=== PATIENT | female | born 1940 | race Caucasian/White ===

== ENCOUNTER 2018-01-01 13:53 | Inpatient (IN) ==
[2018-01-01] MEDS ORDERED: 0.9 % Sodium Chloride 500 ML IVC ONE ×2 (13:58→15:18)
--- NOTE | 2018-01-01 14:11 | Emergency Department Note ---
Disposition Clinical Impression: C. difficile colitis, Hyponatremia, Elevated troponin, Urinary retention, NSTEMI (non-ST elevated myocardial infarction) Disposition: Admitted As Inpatient Condition: Good General Adult HPI - General Chief complaint: ED Shortness of Breath/Dyspnea Stated complaint: SOB Time Seen by Provider: 01/01/18 13:56 Nursing Notes Reviewed: Yes Vital Signs Reviewed: Yes - History of Present Illness Pain Scale: 8 - Related Data Home Medications Medication Instructions Recorded Confirmed Albuterol Sulfate [Proair Hfa] 2 puff IH Q4H PRN 08/28/15 01/01/18 Fluticasone/Salmeterol [Advair 1 puff IH BID 08/28/15 01/01/18 250-50 Diskus] Loratadine [Claritin] 10 mg PO QPM 08/28/15 01/01/18 Ascorbate Calcium [Vitamin C] 500 mg PO DAILY 01/01/18 01/01/18 Aspirin Enteric Coated [Aspirin EC] 81 mg PO DAILY 01/01/18 01/01/18 Cholecalciferol (D-3) [Vitamin D] 1,000 unit PO DAILY 01/01/18 01/01/18 Vancomycin HCl [Vancomycin HCl] 250 mg PO Q6H 01/01/18 01/01/18 Previous Rx's Medication Instructions Recorded Esomeprazole Magnesium [Nexium] 40 mg PO BID #60 04/10/16 Sucralfate [Carafate] 1 gm PO QIDAC #120 tablet 04/10/16 Allergies Allergy/AdvReac Type Severity Reaction Status Date / Time morphine AdvReac Vomiting Verified 08/28/15 19:55 Oxycodone [From Percocet] AdvReac Vomiting Verified 01/01/18 14:46 propoxyphene AdvReac Vomiting Verified 01/01/18 14:46 [From Darvocet-N] tramadol AdvReac Headache Verified 01/01/18 14:46 tape Allergy Hives Uncoded 01/01/18 14:46 Past Medical History - Past Medical History Medical history: Reports: COPD, hypertension Surgical history: Reports: appendectomy, cholecystectomy, hysterectomy Psychiatric history: Reports: no psych history SECRETARIAL STENOGRAPHER history: Reports: no SECRETARIAL STENOGRAPHER history - Social History Smoking Status: Never smoker Smokeless Tobacco Status: No Alcohol use: Reports: none Drug use: Reports: none Course Vital Signs Temperature 98.2 F 01/01/18 14:04 Pulse Rate 109 01/01/18 14:04 Respiratory Rate 24 01/01/18 14:04 Blood Pressure 156/78 01/01/18 14:04 O2 Sat by Pulse Oximetry 96 01/01/18 14:04 Temperature 97.8 F 01/01/18 19:21 Pulse Rate 106 01/01/18 19:21 Respiratory Rate 18 01/01/18 19:21 Blood Pressure 122/92 01/01/18 19:21 O2 Sat by Pulse Oximetry 96 01/01/18 19:21 Oxygen Delivery Oxygen Delivery Nasal Cannula Medical Decision Making - Lab Data Result diagrams: 01/01/18 14:06 01/01/18 14:06 Lab Results 01/01/18 01/01/18 01/01/18 Range/Units 14:06 14:06 14:06 WBC 16.3 H (4.3-11.1) K/mcL RBC 4.43 (3.82-4.97) M/mcL Hgb 13.1 (11.5-15.4) g/dL Hct 38.5 (35.3-44.9) % MCV 86.9 (83.0-100.0) fL MCH 29.6 (28.0-33.3) pg MCHC 34.0 (31.6-35.5) g/dL RDW 14.0 (11.5-14.5) % Plt Count 367 (140-400) K/mcL MPV 9.1 L (9.4-12.4) fL Immature Gran % 0.4 (0-4) % Seg Neutrophils % 87.7 % Lymphocytes % 7.4 % Monocytes % 4.2 % Eosinophils % 0.1 % Basophils % 0.2 % Neutrophils # 14.3 H (1.6-8.9) K/mcL Lymphocytes # 1.2 (0.6-4.6) K/mcL Monocytes # 0.7 (0.0-1.3) K/mcL Eosinophils # 0.0 (0.0-0.6) K/mcL Basophils # 0.0 (0.0-0.2) K/mcL Sodium 118 L* (136-145) mEq/L Potassium 3.7 (3.5-5.1) mEq/L Chloride 91 L (98-107) mEq/L Carbon Dioxide 17 L (23-29) mEq/L BUN 9 (8-23) mg/dL Creatinine 0.53 L (0.60-1.20) mg/dL Est GFR ( Amer) > 60 (> 60) Est GFR (Non-Af Amer) > 60 (> 60) BUN/Creatinine Ratio 17 (6-26) Glucose 163 H (70-105) mg/dL Calculated Osmolality 248 L (280-300) Lactic Acid 1.6 (0.5-2.2) mmol/L Calcium 9.0 (8.6-10.3) mg/dL Troponin I 0.43 H* (< 0.04) ng/mL Urine Color (Yellow) Urine Clarity (Clear) Urine pH (5.0-8.0) pH Units Ur Specific [place] (1.010-1.025) Urine Protein (Neg-Trace) mg/dL Urine Glucose (UA) (Normal) mg/dL Urine Ketones (Negative) mg/dL Urine Blood (Negative) Urine Nitrite (Negative) Urine Bilirubin (Negative) Urine Urobilinogen (Normal) mg/dL Ur Leukocyte Esterase (Negative) Ur Culture Indicated? (NO) 01/01/18 Range/Units 14:20 WBC (4.3-11.1) K/mcL RBC (3.82-4.97) M/mcL Hgb (11.5-15.4) g/dL Hct (35.3-44.9) % MCV (83.0-100.0) fL MCH (28.0-33.3) pg MCHC (31.6-35.5) g/dL RDW (11.5-14.5) % Plt Count (140-400) K/mcL MPV (9.4-12.4) fL Immature Gran % (0-4) % Seg Neutrophils % % Lymphocytes % % Monocytes % % Eosinophils % % Basophils % % Neutrophils # (1.6-8.9) K/mcL Lymphocytes # (0.6-4.6) K/mcL Monocytes # (0.0-1.3) K/mcL Eosinophils # (0.0-0.6) K/mcL Basophils # (0.0-0.2) K/mcL Sodium (136-145) mEq/L Potassium (3.5-5.1) mEq/L Chloride (98-107) mEq/L Carbon Dioxide (23-29) mEq/L BUN (8-23) mg/dL Creatinine (0.60-1.20) mg/dL Est GFR ( Amer) (> 60) Est GFR (Non-Af Amer) (> 60) BUN/Creatinine Ratio (6-26) Glucose (70-105) mg/dL Calculated Osmolality (280-300) Lactic Acid (0.5-2.2) mmol/L Calcium (8.6-10.3) mg/dL Troponin I (< 0.04) ng/mL Urine Color Yellow (Yellow) Urine Clarity Clear (Clear) Urine pH 7.0 (5.0-8.0) pH Units Ur Specific [place] 1.008 L (1.010-1.025) Urine Protein Negative (Neg-Trace) mg/dL Urine Glucose (UA) Normal (Normal) mg/dL Urine Ketones Negative (Negative) mg/dL Urine Blood Negative (Negative) Urine Nitrite Negative (Negative) Urine Bilirubin Negative (Negative) Urine Urobilinogen Normal (Normal) mg/dL Ur Leukocyte Esterase Negative (Negative) Ur Culture Indicated? NO (NO) Attestation Statement - Attestation Attestation: This documentation is done with the assistance of Dragon dictation. Despite efforts made to ensure accuracy, there may be inaccuracies in slip cover cutter or spelling and typographical errors. this is I examined this patient and my medical decision-making was reviewed with the Resident Physician. I agree with the documented findings, disposition and treatment plan as described except to the extent set forth below. He cannot get long patient seen and evaluated on arrival with EMS, and Dr. Hagen, I agree with her evaluation and management plan, supervise care the patient's stay. Patient comes from home she had some shortness of breath and was anxious. Sharlamustapha was able to get her calm down in the and coaxed her to breathe slower no breathing treatments. She says she is not able to stay at home she is C. difficile and she is not doing well she appears somewhat dehydrated. With some abdominal cramping. we will Do a workup on her and she will most likely need admission. She is in agreement with this plan.
--- NOTE | 2018-01-01 14:15 | Emergency Department Note ---
Disposition Clinical Impression: C. difficile colitis, Hyponatremia, Elevated troponin, Urinary retention, NSTEMI (non-ST elevated myocardial infarction) Disposition: Admitted As Inpatient Condition: Good Referrals: Emanuel Kulkarni MD [Primary Care Provider] - Forms: ED Satisfaction Letter Time of Disposition: 16:46 General Adult HPI - General Chief complaint: ED Shortness of Breath/Dyspnea Stated complaint: SOB Time Seen by Provider: 01/01/18 13:56 Nursing Notes Reviewed: Yes Vital Signs Reviewed: Yes - History of Present Illness HPI Narrative: Greater than 2 week history of C. difficile. Was on oral Flagyl with no relief. Recently started last week on oral vancomycin. Got short of breath this morning. Does have a history of COPD. Patient reports a decreased by mouth intake. Also complaining that she has not been able to urinate since this morning. Also complaining of generalized abdominal pain. Pain Scale: 8 - Related Data Home Medications Medication Instructions Recorded Confirmed Albuterol Sulfate [Proair Hfa] 2 puff IH Q4H PRN 08/28/15 01/01/18 Fluticasone/Salmeterol [Advair 1 puff IH BID 08/28/15 01/01/18 250-50 Diskus] Loratadine [Claritin] 10 mg PO QPM 08/28/15 01/01/18 Ascorbate Calcium [Vitamin C] 500 mg PO DAILY 01/01/18 01/01/18 Aspirin Enteric Coated [Aspirin EC] 81 mg PO DAILY 01/01/18 01/01/18 Cholecalciferol (D-3) [Vitamin D] 1,000 unit PO DAILY 01/01/18 01/01/18 Vancomycin HCl [Vancomycin HCl] 250 mg PO Q6H 01/01/18 01/01/18 Previous Rx's Medication Instructions Recorded Esomeprazole Magnesium [Nexium] 40 mg PO BID #60 04/10/16 Sucralfate [Carafate] 1 gm PO QIDAC #120 tablet 04/10/16 Allergies Allergy/AdvReac Type Severity Reaction Status Date / Time morphine AdvReac Vomiting Verified 08/28/15 19:55 Oxycodone [From Percocet] AdvReac Vomiting Verified 01/01/18 14:46 propoxyphene AdvReac Vomiting Verified 01/01/18 14:46 [From Darvocet-N] tramadol AdvReac Headache Verified 01/01/18 14:46 tape Allergy Hives Uncoded 01/01/18 14:46 All systems ED: reviewed and negative except as stated. Constitutional: Denies: fever, chills ENT ED: Denies: congestion Cardiovascular: Denies: chest pain, palpitations, syncope Respiratory: Reports: dyspnea. Denies: cough Gastrointestinal: Reports: abdominal pain, nausea, diarrhea, melena. Denies: vomiting, hematemesis, hematochezia Genitourinary: Reports: frequency (decreased). Denies: urgency, dysuria, hematuria Past Medical History - Past Medical History Attestation: Yes The following information was validated with the patient. Source: patient Medical history: Reports: COPD, hypertension Surgical history: Reports: appendectomy, cholecystectomy, hysterectomy Psychiatric history: Reports: no psych history CHIEF OPERATIONS OFFICER history: Reports: no CHIEF OPERATIONS OFFICER history - Social History Smoking Status: Never smoker Smokeless Tobacco Status: No Alcohol use: Reports: none Drug use: Reports: none Physical Exam - General Limitations: no limitations General appearance: alert, in distress (Respiratory. Patient's tachypneic) - Head Head exam: atraumatic, normocephalic, normal inspection - Eye Eye exam: Present: normal appearance, PERRL, EOMI - ENT ENT exam: normal exam, normal oropharynx, mucous membranes dry - Neck Neck exam: Present: normal inspection, full ROM, trachea midline - Chest Chest inspection: Present: normal inspection, symmetric chest wall rise - Respiratory Respiratory exam: Present: normal lung sounds bilaterally, respiratory distress. Absent: accessory muscle use - Cardiovascular Cardiovascular exam: Present: regular rate, normal rhythm, normal heart sounds - Abdominal Exam Abdominal exam: Present: soft, tenderness (Diffusely), distention, guarding. Absent: rigidity, organomegaly - Extremities Exam Extremities exam: Present: normal inspection, full ROM, normal capillary refill. Absent: tenderness, pedal edema - Back Exam Back exam: Present: normal inspection, full ROM. Absent: tenderness - Neurological Exam Neurological exam: Present: alert, oriented X3 - Psychiatric Psychiatric exam: Present: anxious - Skin Skin exam: Present: warm, dry, intact, normal color Course Course Narrative: Female patient presenting to the emergency department with a history of C. difficile. She was placed on Flagyl however did not have resolution so last week she was placed on vancomycin orally. Patient states that she is not able to eat at home. She states that she is deteriorating. She is presenting short of breath. She is tachypneic. Does have a history of COPD. Does not wear oxygen at home. EMS was called and they say that she was very tachypneic when they got there except for they started to calm her down and this did help resolve patient's symptoms. Patient has diffuse abdominal pain on palpation. She states she has not been able to urinate all day today. Last time she urinated was this morning. She states that she has been able to drink fluids. She is using accessory muscles to breathe at this time. Chest x-ray shows emphysematous changes. She is not febrile. CT does show a distended urinary bladder with urine back up into the renal pelvises. We will place a Person at this time. Patient is hyponatremic. She also has an elevated troponin. Denies any chest pain. No ST elevation on her EKG. We will give her aspirin. We will admit to the hospital for deconditioning and NSTEMI and hyponatremia. - Consultations Consultation #1: Dr Damico accepted Pt in stable condition. Time: 17:45 Vital Signs Temperature 98.2 F 01/01/18 14:04 Pulse Rate 109 01/01/18 14:04 Respiratory Rate 24 01/01/18 14:04 Blood Pressure 156/78 01/01/18 14:04 O2 Sat by Pulse Oximetry 96 01/01/18 14:04 Temperature 98.2 F 01/01/18 17:21 Pulse Rate 111 01/01/18 17:21 Respiratory Rate 20 01/01/18 17:21 Blood Pressure 138/102 01/01/18 17:21 O2 Sat by Pulse Oximetry 95 01/01/18 17:21 Oxygen Delivery Oxygen Delivery Nasal Cannula Medical Decision Making - Medical Records Medical records reviewed: Yes I reviewed the patient's medical records. - Lab Data Lab results reviewed: Yes I reviewed the patient's lab results. Result diagrams: 01/01/18 14:06 01/01/18 14:06 Lab Results 01/01/18 01/01/18 01/01/18 Range/Units 14:06 14:06 14:06 WBC 16.3 H (4.3-11.1) K/mcL RBC 4.43 (3.82-4.97) M/mcL Hgb 13.1 (11.5-15.4) g/dL Hct 38.5 (35.3-44.9) % MCV 86.9 (83.0-100.0) fL MCH 29.6 (28.0-33.3) pg MCHC 34.0 (31.6-35.5) g/dL RDW 14.0 (11.5-14.5) % Plt Count 367 (140-400) K/mcL MPV 9.1 L (9.4-12.4) fL Immature Gran % 0.4 (0-4) % Seg Neutrophils % 87.7 % Lymphocytes % 7.4 % Monocytes % 4.2 % Eosinophils % 0.1 % Basophils % 0.2 % Neutrophils # 14.3 H (1.6-8.9) K/mcL Lymphocytes # 1.2 (0.6-4.6) K/mcL Monocytes # 0.7 (0.0-1.3) K/mcL Eosinophils # 0.0 (0.0-0.6) K/mcL Basophils # 0.0 (0.0-0.2) K/mcL Sodium 118 L* (136-145) mEq/L Potassium 3.7 (3.5-5.1) mEq/L Chloride 91 L (98-107) mEq/L Carbon Dioxide 17 L (23-29) mEq/L BUN 9 (8-23) mg/dL Creatinine 0.53 L (0.60-1.20) mg/dL Est GFR ( Amer) > 60 (> 60) Est GFR (Non-Af Amer) > 60 (> 60) BUN/Creatinine Ratio 17 (6-26) Glucose 163 H (70-105) mg/dL Calculated Osmolality 248 L (280-300) Lactic Acid 1.6 (0.5-2.2) mmol/L Calcium 9.0 (8.6-10.3) mg/dL Troponin I 0.43 H* (< 0.04) ng/mL Urine Color (Yellow) Urine Clarity (Clear) Urine pH (5.0-8.0) pH Units Ur Specific [place] (1.010-1.025) Urine Protein (Neg-Trace) mg/dL Urine Glucose (UA) (Normal) mg/dL Urine Ketones (Negative) mg/dL Urine Blood (Negative) Urine Nitrite (Negative) Urine Bilirubin (Negative) Urine Urobilinogen (Normal) mg/dL Ur Leukocyte Esterase (Negative) Ur Culture Indicated? (NO) 01/01/18 Range/Units 14:20 WBC (4.3-11.1) K/mcL RBC (3.82-4.97) M/mcL Hgb (11.5-15.4) g/dL Hct (35.3-44.9) % MCV (83.0-100.0) fL MCH (28.0-33.3) pg MCHC (31.6-35.5) g/dL RDW (11.5-14.5) % Plt Count (140-400) K/mcL MPV (9.4-12.4) fL Immature Gran % (0-4) % Seg Neutrophils % % Lymphocytes % % Monocytes % % Eosinophils % % Basophils % % Neutrophils # (1.6-8.9) K/mcL Lymphocytes # (0.6-4.6) K/mcL Monocytes # (0.0-1.3) K/mcL Eosinophils # (0.0-0.6) K/mcL Basophils # (0.0-0.2) K/mcL Sodium (136-145) mEq/L Potassium (3.5-5.1) mEq/L Chloride (98-107) mEq/L Carbon Dioxide (23-29) mEq/L BUN (8-23) mg/dL Creatinine (0.60-1.20) mg/dL Est GFR ( Amer) (> 60) Est GFR (Non-Af Amer) (> 60) BUN/Creatinine Ratio (6-26) Glucose (70-105) mg/dL Calculated Osmolality (280-300) Lactic Acid (0.5-2.2) mmol/L Calcium (8.6-10.3) mg/dL Troponin I (< 0.04) ng/mL Urine Color Yellow (Yellow) Urine Clarity Clear (Clear) Urine pH 7.0 (5.0-8.0) pH Units Ur Specific [place] 1.008 L (1.010-1.025) Urine Protein Negative (Neg-Trace) mg/dL Urine Glucose (UA) Normal (Normal) mg/dL Urine Ketones Negative (Negative) mg/dL Urine Blood Negative (Negative) Urine Nitrite Negative (Negative) Urine Bilirubin Negative (Negative) Urine Urobilinogen Normal (Normal) mg/dL Ur Leukocyte Esterase Negative (Negative) Ur Culture Indicated? NO (NO) - Radiology Data Radiology results reviewed: Yes I reviewed the patient's radiology results. Chest X-Ray 01/01/18 13:57 IMPRESSION: Mild bibasilar airspace disease, atelectasis or pneumonia. Follow-up to resolution is recommended. D/ / Gloria York Cha, MD / Gloria York Cha, MD Interpreting Provider: Gloria York Cha, MD - EKG Data EKG #1 EKG attestation: Yes I reviewed and interpreted this EKG. EKG results narrative: Sinus tach at a rate of 129. LA interval is 137. QRS duration is 141. QT is 347. QTC is 423. Patient does have a right bundle branch block. On previous EKG dated 04/08/2016 patient was tachycardic at a rate 104 with a right bundle branch block as well. EKG #2 EKG attestation: Yes I reviewed and interpreted this EKG. EKG results narrative: Sinus tachycardia at a rate of 122. QRS duration is 145. QT is 345. QTC is 417. No signs of acute ischemia.
[2018-01-01 14:21] LABS: Basophils % 0.2 %; Eosinophils % 0.1 %; Hematocrit 38.5 % (35.3-44.9); Hemoglobin 13.1 g/dL (11.5-15.4); Immature Granulocytes % 0.4 % (0-4); Lymphocytes # 1.2 K/mcL (0.6-4.6); Lymphocytes % 7.4 %; Mean Corpuscular Hemoglobin 29.6 pg (28.0-33.3); Mean Corpuscular Volume 86.9 fL (83.0-100.0); Mean Platelet Volume 9.1 fL (9.4-12.4); Monocytes # 0.7 K/mcL (0.0-1.3); Monocytes % 4.2 %; Neutrophils # 14.3 K/mcL (1.6-8.9); Platelet Count 367 K/mcL (140-400); Red Blood Count 4.43 M/mcL (3.82-4.97); Segmented Neutrophils % 87.7 %
[2018-01-01 14:44] LABS: BUN/Creatinine Ratio 17 (6-26); Blood Urea Nitrogen 9 mg/dL (8-23); Carbon Dioxide 17 mEq/L (23-29); Chloride 91 mEq/L (98-107); Glucose 163 mg/dL (70-105); Osmolality,Calculated 248 (280-300); Potassium 3.7 mEq/L (3.5-5.1); Sodium 118 mEq/L (136-145); Troponin I 0.43 ng/mL (< 0.04); eGFR For African Americans > 60 (> 60); eGFR For Non-African Americans > 60 (> 60)
[2018-01-01 14:46] LABS: Bilirubin,Urine Negative (Negative); Blood,Urine Negative (Negative); Clarity,Urine Clear (Clear); Color,Urine Yellow (Yellow); Glucose,Urine (UA) Normal (Normal); Ketones,Urine Negative (Negative); Leukocyte Esterase,Urine Negative (Negative); Nitrite,Urine Negative (Negative); Protein,Urine Negative (Neg-Trace); Specific Gravity,Urine 1.008 (1.010-1.025); Urobilinogen,Urine Normal (Normal)
[2018-01-01] MEDS ORDERED: Aspirin 81 MG TAB.CHEW PO STA (14:57)
[2018-01-01] MEDS ORDERED: Isovue-370 500 ML INFUS..BTL IV ONE (15:05)
[2018-01-01] MEDS ORDERED: Naloxone 0.4 MG/ML INJ IVP PRN (19:08)
[2018-01-01] MEDS ORDERED: Nitroglycerin 0.4 MG TAB.SUBL SL PRN (19:19)
--- NOTE | 2018-01-01 19:47 | Internal Med History&Physical ---
Date of Encounter: 01/01/18 Time of Encounter: 20:00 Internal Medicine - H&P: HPI Chief complaint: Abdominal pain Admitted From: Home Plans for Post Hospital Care: Home History of present illness: Ms. Page is a 77 year old female with a history of C. difficile was treated on Flagyl but failed Flagyl therapy and was started on by mouth vancomycin by her PCP today is day 3 presented to the emergency department with abdominal pain. CT abdomen treatment was done and did not show any acute abnormality. Patient was found to have hyponatremia with sodium of 118. Patient stated that she is having diarrhea and she is drinking a lot of water trying to rehydrate herself. She denied any shortness of breath, no headache, no chest pain per se but she stated. She is having soreness off and on. She does have nausea and vomiting and she vomited in the emergency department. Past Med Surg Social Fam HX - Past Medical History Medical history: COPD, hypertension Psychiatric history: no psych history - Past Surgical History Surgical History: appendectomy, cholecystectomy, hysterectomy Additional surgical history: hernia surgery - Social History Smoking Status: Never smoker Smokeless Tobacco Status: No Alcohol use: none Drug use: none - Family History Father Hx Family Cardiac Disorders: Yes Internal Medicine - H&P: Meds Albuterol Sulfate [Proair Hfa] 2 puff IH Q4H PRN 08/28/15 [History] Fluticasone/Salmeterol [Advair 250-50 Diskus] 1 puff IH BID 08/28/15 [History] Loratadine [Claritin] 10 mg PO QPM 08/28/15 [History] Esomeprazole Magnesium [Nexium] 40 mg PO BID #60 04/10/16 [Rx] Sucralfate [Carafate] 1 gm PO QIDAC #120 tablet 04/10/16 [Rx] Ascorbate Calcium [Vitamin C] 500 mg PO DAILY 01/01/18 [History] Aspirin Enteric Coated [Aspirin EC] 81 mg PO DAILY 01/01/18 [History] Cholecalciferol (D-3) [Vitamin D] 1,000 unit PO DAILY 01/01/18 [History] Vancomycin HCl [Vancomycin HCl] 250 mg PO Q6H 01/01/18 [History] 3 Allergy/AdvReac Type Severity Reaction Status Date / Time morphine AdvReac Vomiting Verified 08/28/15 19:55 Oxycodone [From Percocet] AdvReac Vomiting Verified 01/01/18 14:46 propoxyphene AdvReac Vomiting Verified 01/01/18 14:46 [From Darvocet-N] tramadol AdvReac Headache Verified 01/01/18 14:46 tape Allergy Hives Uncoded 01/01/18 14:46 All Systems PM: A 10-system review of systems was performed and is negative for pertinent findings except as documented above in the HPI. - Constitutional Vitals: Temp Pulse Resp BP Pulse Ox 97.8 F 106 18 122/92 96 01/01/18 19:21 01/01/18 19:21 01/01/18 19:21 01/01/18 19:21 01/01/18 19:21 - Head Head exam: Present: atraumatic, normocephalic - Eye Eye exam: Present: PERRL, conjuntiva pink, sclera anicteric Pupils: Present: PERRL - Neck Neck exam general surgery: Present: supple, trachea midline. Absent: lymphadenopathy - Respiratory Respiratory exam: Present: CTAB. Absent: accessory muscle use, rales, rhonchi, wheezes - Cardiovascular Cardiovascular exam: Present: RRR, +S1, +S2. Absent: diastolic murmur, gallop, rubs, systolic murmur - GI/Abdominal Additional comments: Diffuse vague tenderness mostly on the left side - Extremities Exam Extremities exam: Present: warm, radial pulses palpable and symmetrical. Absent : calf tenderness, cyanotic, pedal edema - Neurological Exam Neurological exam: Present: CN II-XII intact, oriented X3, no focal deficits. Absent: pronater drift, facial droop, speech deficit Internal Med - H&P Results - Labs CBC & Chem 7: 01/01/18 14:06 01/01/18 14:06 - Assessment and plan (1) Hyponatremia Current Visit: Yes Status: Acute Assessment and plan: Patient already got fluid in the emergency department Although it will not be accurate, but we will check serum and urine osmolality, urine sodium We will repeat sodium level and recheck in 4 hours. We will avoid correction of the sodium more than 8 per 24 hours Patient was drinking a lot of water trying to rehydrate herself. We will put her on water restriction less than 1 L per day Patient is awake alert oriented 3, no neurological deficit Nephrology consult. I did discuss with Dr. Natarajan (2) Troponin level elevated Current Visit: Yes Status: Acute Assessment and plan: We will cycle troponin every 6 hours for 3 sets Continue aspirin, metoprolol, statin, nitrates when necessary Check an echocardiogram for further evaluation of the heart structure and function EKG in the morning. Continuous telemetry monitoring Fasting lipid profile in the morning Cardiology consult. Discussed with Dr. Bartholomew (3) C. difficile colitis Current Visit: Yes Status: Acute Assessment and plan: Patient failed Flagyl course Looks like she is improving on by mouth vancomycin. Last bowel movement was this morning Continue by mouth vancomycin every 6 hours for a total course of 10 days (4) History of COPD Current Visit: Yes Status: Acute (5) On esomeprazole prophylaxis Current Visit: Yes Status: Acute (6) DVT prophylaxis Current Visit: Yes Status: Acute Assessment and plan: With Lovenox subcutaneous - Time Spent With Patient Total time spent is greater than 50% in coordination of care (as documented) at patient's floor/unit and/or counseling patient:
[2018-01-01] MEDS: Budesonide/Formoterol 80/4.5 MDI IH SCH ×2 (20:50→20:57)
[2018-01-01] MEDS: Vancomycin Oral Soln 125 MG/2.5 ML UDC PO SCH (21:55)
[2018-01-01] MEDS: Sucralfate 1 GM TABLET PO SCH (21:57)
[2018-01-02 01:38] LABS: Basophils % 0.4 %; Eosinophils % 0.4 %; Hematocrit 35.2 % (35.3-44.9); Immature Granulocytes % 0.2 % (0-4); Lymphocytes # 1.5 K/mcL (0.6-4.6); Lymphocytes % 14.7 %; Mean Corpuscular HGB Conc 34.1 g/dL (31.6-35.5); Mean Corpuscular Hemoglobin 29.8 pg (28.0-33.3); Mean Corpuscular Volume 87.3 fL (83.0-100.0); Mean Platelet Volume 9.1 fL (9.4-12.4); Monocytes # 0.7 K/mcL (0.0-1.3); Monocytes % 7.3 %; Neutrophils # 7.6 K/mcL (1.6-8.9); Platelet Count 309 K/mcL (140-400); Red Blood Count 4.03 M/mcL (3.82-4.97)
[2018-01-02] MEDS ORDERED: Ondansetron ODT 4 MG TAB.RAPDIS SL PRN (01:54)
[2018-01-02 01:57] LABS: BUN/Creatinine Ratio 18 (6-26); Blood Urea Nitrogen 10 mg/dL (8-23); Calcium 8.7 mg/dL (8.6-10.3); Carbon Dioxide 20 mEq/L (23-29); Chloride 97 mEq/L (98-107); Chol/HDL Ratio 2.5 (0-4.9); Cholesterol 116 mg/dL (< 200); Glucose 155 mg/dL (70-105); HDL Cholesterol 46 mg/dL (40-59); LDL Cholesterol,Calculated 52 mg/dL (0-99); Magnesium 1.9 mg/dL (1.6-2.6); Osmolality,Calculated 258 (280-300); Phosphorous 3.1 mg/dL (2.7-4.5); Potassium 3.6 mEq/L (3.5-5.1); Sodium 123 mEq/L (136-145); Triglycerides 91 mg/dL (< 150); eGFR For African Americans > 60 (> 60); eGFR For Non-African Americans > 60 (> 60)
[2018-01-02] MEDS: *HR* Enoxaparin 40 MG/0.4 ML SYRINGE SQ SCH (05:50)
[2018-01-02] MEDS: Sucralfate 1 GM TABLET PO SCH ×4 (10:07→22:08)
[2018-01-02] MEDS: Ascorbic Acid 500 MG TABLET PO SCH (10:08)
[2018-01-02] MEDS: Cholecalciferol (D-3) 1,000 UNIT TABLET PO SCH (10:08)
[2018-01-02] MEDS: Aspirin Enteric Coated 81 MG Tablet PO SCH (10:08)
[2018-01-02] MEDS: Vancomycin Oral Soln 125 MG/2.5 ML UDC PO SCH ×4 (10:19→22:08)
--- NOTE | 2018-01-02 10:27 | Cardiology Consult Note ---
Date of Encounter: 01/02/18 Time of Encounter: 10:22 Assessment and Plan (1) Troponin level elevated Current Visit: Yes Status: Acute Troponin level elevated up to 1.17 and trending down.. NSTEMi VS demand ischemia in the setting of dehydration and infection. Patient denies cardiac symptoms. C/o abdominal pain and bloating with diarrhea. Check TTE. Patient declines invasive evaluation and prefers conservative medical management. Continue asa, statin, and bb. Discussion w patient/family: The assessment and plan as outlined above was discussed with the patient and/or family members who expressed understanding and agreement. All questions were answered. Thank you for involving us in the care of your patient. Please call with any questions. History of Present Illness Consult date: 01/02/18 Requesting physician: Arline Sorenson Consult reason: elevated troponin Chief complaint: abd pain History of present illness: Ms. Page is a 77 year old female with past medical history of COPD and HTN who presents with abdominal pain. She was recently diagnosed with c-diff and was being treated in the out-pt setting. C/o worsening abdominal pain and continued diarrhea so she presented to the hospital. CT of the abdomen showed no acute findings. She was found to have elevated troponin up to 1.17 and cardiology was consulted for further evaluation. She denies chest pain or SOB. Denies palpitations or dizziness. Denies prior history of CAD. She did undergo LHC more than 10 years ago at [facility] with no concerning finding. Past Med Surg Social Fam HX - Past Medical History Medical history: COPD, hypertension Additional medical history: PROLAPSED UTERUS, ANEMIA Psychiatric history: no psych history - Past Surgical History Surgical History: appendectomy, cholecystectomy, hysterectomy Additional surgical history: hernia surgery, SCOLIOSIS - Social History Smoking Status: Former smoker Smokeless Tobacco Status: No Alcohol use: none Drug use: none - Family History Father Living Status: Cause of : STROKE Hx Family Cardiac Disorders: Yes Medications and Allergies Albuterol Sulfate [Proair Hfa] 2 puff IH Q4H PRN 08/28/15 [History] Fluticasone/Salmeterol [Advair 250-50 Diskus] 1 puff IH BID 08/28/15 [History] Loratadine [Claritin] 10 mg PO QPM 08/28/15 [History] Esomeprazole Magnesium [Nexium] 40 mg PO BID #60 04/10/16 [Rx] Sucralfate [Carafate] 1 gm PO QIDAC #120 tablet 04/10/16 [Rx] Ascorbate Calcium [Vitamin C] 500 mg PO DAILY 01/01/18 [History] Aspirin Enteric Coated [Aspirin EC] 81 mg PO DAILY 01/01/18 [History] Cholecalciferol (D-3) [Vitamin D] 1,000 unit PO DAILY 01/01/18 [History] Vancomycin HCl [Vancomycin HCl] 250 mg PO Q6H 01/01/18 [History] 3 Allergy/AdvReac Type Severity Reaction Status Date / Time morphine AdvReac Vomiting Verified 08/28/15 19:55 Oxycodone [From Percocet] AdvReac Vomiting Verified 01/01/18 14:46 propoxyphene AdvReac Vomiting Verified 01/01/18 14:46 [From Darvocet-N] tramadol AdvReac Headache Verified 01/01/18 14:46 tape Allergy Hives Uncoded 01/01/18 14:46 All Systems Review: The remainder of the systems were reviewed and are negative Physical Examination Vital Signs, Last 4 Hours Temp Pulse Resp BP Pulse Ox 01/02/18 07:26 97.8 F 100 16 123/84 97 General: Conversant, No Apparent Distress HEENT: Atraumatic, Normocephaly, Mucus Membranes Moist Neck: No JVD, Normal carotid pulses Cardiac: Reg Rate and Rhythm, Normal S1 and S2, No Murmur Lungs: Normal Breath Sounds, No Wheeze, Rales, Rhonchi Neuro: Alert and responsive, No focal deficits noted Abdomen: Soft, Non-Tender Skin: No rashes noted on visualized skin Musculoskeletal: No Chest Wall Tenderness Extremities: No Clubbing, No Cyanosis, No Edema, Normal Pulses Results 01/02/18 01:24 01/02/18 01:24 Lab Results 01/01/18 01/01/18 01/02/18 19:28 22:29 01:24 WBC Hgb Hct Plt Count Sodium 124 L Potassium Chloride Carbon Dioxide BUN Creatinine Glucose Calcium Magnesium Troponin I 1.17 H* 0.93 H* 01/02/18 01/02/18 01/02/18 01:24 01:24 07:21 WBC 9.9 Hgb 12.0 Hct 35.2 L Plt Count 309 Sodium 123 L Potassium 3.6 Chloride 97 L Carbon Dioxide 20 L BUN 10 Creatinine 0.56 L Glucose 155 H Calcium 8.7 Magnesium 1.9 Troponin I 0.69 H* - Imaging and Cardiology Echo: pending, report reviewed - EKG Interpretation EKG results cardiology: personally reviewed Consult Discharge Plan - Plan Referrals: Emanuel Kulkarni MD [Primary Care Provider] -
[2018-01-02] MEDS: Budesonide/Formoterol 80/4.5 MDI IH SCH ×2 (12:03→20:19)
--- NOTE | 2018-01-02 13:55 | Nephrology Consult Note ---
Date of Encounter: 01/02/18 Time of Encounter: 13:00 Assessment and Plan (1) Hyponatremia Current Visit: Yes Status: Acute Suspect hypovolemic hyponatremia in the setting of c.diff colitis with diarrhea Already improving after NS, will continue or encouraged increase po sodium consumption Urine osm noted low which is consistent. Urine sodium on the low end Serum osm confirms hponatremia diagnosis Will follow with you. thanks (2) Elevated troponin Current Visit: Yes Status: Acute Per cardiology, on board (3) C. difficile colitis Current Visit: Yes Status: Acute Per primary team, on vanco History of Present Illness - Reason for Consult Consult date: 01/02/18 hyponatremia Requesting physician: Arline Sorenson - History of Present Illness 77 y o female with PMH of COPD nad HTN treated for c.diff outpatient ad failed flagyl therapy admitted with sodium of 118. Pt was apparently trying to hydrate with plain water while having diarrhea. She recived 2liters NS while in the ER yesterday with repeat sodium noted at 124. Todays sodium noted at 123. No N/V. No diuretics on board Past Med Surg Social Fam HX - Past Medical History Medical history: COPD, hypertension Additional medical history: PROLAPSED UTERUS, ANEMIA Psychiatric history: no psych history - Past Surgical History Surgical History: appendectomy, cholecystectomy, hysterectomy Additional surgical history: hernia surgery, SCOLIOSIS - Social History Smoking Status: Former smoker Smokeless Tobacco Status: No Alcohol use: none Drug use: none - Family History Father Living Status: Cause of : STROKE Hx Family Cardiac Disorders: Yes Medications and Allergies Albuterol Sulfate [Proair Hfa] 2 puff IH Q4H PRN 08/28/15 [History] Fluticasone/Salmeterol [Advair 250-50 Diskus] 1 puff IH BID 08/28/15 [History] Loratadine [Claritin] 10 mg PO QPM 08/28/15 [History] Esomeprazole Magnesium [Nexium] 40 mg PO BID #60 04/10/16 [Rx] Sucralfate [Carafate] 1 gm PO QIDAC #120 tablet 04/10/16 [Rx] Ascorbate Calcium [Vitamin C] 500 mg PO DAILY 01/01/18 [History] Aspirin Enteric Coated [Aspirin EC] 81 mg PO DAILY 01/01/18 [History] Cholecalciferol (D-3) [Vitamin D] 1,000 unit PO DAILY 01/01/18 [History] Vancomycin HCl [Vancomycin HCl] 250 mg PO Q6H 01/01/18 [History] 3 Allergy/AdvReac Type Severity Reaction Status Date / Time morphine AdvReac Vomiting Verified 08/28/15 19:55 Oxycodone [From Percocet] AdvReac Vomiting Verified 01/01/18 14:46 propoxyphene AdvReac Vomiting Verified 01/01/18 14:46 [From Darvocet-N] tramadol AdvReac Headache Verified 01/01/18 14:46 tape Allergy Hives Uncoded 01/01/18 14:46 Exam - Vital Signs Vital signs: Initial Vital Signs Temp Pulse Resp BP Pulse Ox 98.2 F 109 24 156/78 96 01/01/18 14:04 01/01/18 14:04 01/01/18 14:04 01/01/18 14:04 01/01/18 14:04 Vital Signs - Last 8 Hours Temp Pulse Resp BP Pulse Ox 01/02/18 10:57 97.9 F 96 16 101/62 94 01/02/18 07:26 97.8 F 100 16 123/84 97 Intake and Output 01/01/18 01/02/18 01/02/18 23:59 07:59 15:59 Intake Total 0 / 0 440 / 440 240 / 240 Output Total 550 / 550 850 / 850 200 / 200 Balance -550 / -550 -410 / -410 40 / 40 Intake: Oral 0 / 0 440 / 440 240 / 240 Output: Urine 400 / 400 Catheter 550 / 550 450 / 450 200 / 200 Other: Meal Breakfast Percent of Meal Consumed 100% Stool Size Moderate Small Stool Consistency soft soft Stool Color Brown # Bowel Movements 1 1 Weight 84.9 kg 84.9 kg Patient Weight 01/02/18 23:59 Weight 84.9 kg Results - Lab Results 01/02/18 01:24 01/02/18 01:24 Most recent lab results Calcium 8.7 mg/dL (8.6-10.3) 01/02/18 01:24 Phosphorus 3.1 mg/dL (2.7-4.5) 01/02/18 01:24 Magnesium 1.9 mg/dL (1.6-2.6) 01/02/18 01:24 Urine Sodium 23.3 mEq/L 01/01/18 21:15 Consult Discharge Plan - Plan Referrals: Emanuel Kulkarni MD [Primary Care Provider] -
[2018-01-02] MEDS ORDERED: 0.9 % Sodium Chloride 1,000 ML IVC SCH (15:30)
--- NOTE | 2018-01-02 16:01 | Internal Med Progress Note ---
<Aniket Chan - Last Filed: 01/02/18 16:23> Date of Encounter: 01/02/18 Time of Encounter: 10:40 - Assessment and plan (1) Hyponatremia Current Visit: Yes Status: Acute Assessment and plan: Nephrology following, appreciate the recommendations Urine osmolarity <280, urine sodium under 25, consistent with hyponatremia secondary to extrarenal losses (patient's cdiff diarrhea) PO sodium, cont po vanc, sodium/electrolyte monitoring (2) C. difficile colitis Current Visit: Yes Status: Acute Assessment and plan: On po vanc, 1 episode of diarrhea today q6 x 10 days (3) Elevated troponin Current Visit: Yes Status: Acute Assessment and plan: Downtrending trops trop max of 1.17 ecg ED shows sinus tachycardia in 120s (now low 100s); no st elevation or depression or t wave abnormalities No anginal symptoms/equivalents Will management medically at this time with asa, statin, bb (4) DVT prophylaxis Current Visit: No Status: Acute Assessment and plan: lovenox sq (5) History of COPD Current Visit: Yes Status: Acute Assessment and plan: chronic, cont home meds, no acute exacerbation, saturating well on room air - Time Spent With Patient Total time spent is greater than 50% in coordination of care (as documented) at patient's floor/unit and/or counseling patient: - Subjective Interval history: Admitted for hyponatremia, cdiff diarrhea on po vanc Patient has been on fluid restriction and on cardiac diet, she has not had episodes of confusion, nausea, headache, she has had only 1 episode of diarrhea in 24hours. - Constitutional Vitals: Temp Pulse Resp BP Pulse Ox 97.9 F 96 16 101/62 94 01/02/18 10:57 01/02/18 10:57 01/02/18 10:57 01/02/18 10:57 01/02/18 10:57 General appearance: Present: A&O X 3, no acute distress - Head Head exam: Present: atraumatic, normocephalic - Eye Eye exam: Present: PERRL, conjuntiva pink, sclera anicteric Pupils: Present: PERRL - Neck Neck exam general surgery: Present: supple, trachea midline. Absent: lymphadenopathy - Respiratory Respiratory exam: Present: CTAB. Absent: accessory muscle use, rales, rhonchi, wheezes - Cardiovascular Cardiovascular exam: Present: RRR, +S1, +S2. Absent: diastolic murmur, gallop, rubs, systolic murmur - GI/Abdominal GI/Abdominal exam: Present: normal bowel sounds, soft, no peritoneal signs. Absent: distended, tenderness - Extremities Exam Extremities exam: Present: warm, radial pulses palpable and symmetrical. Absent : calf tenderness, cyanotic, pedal edema - Neurological Exam Neurological exam: Present: CN II-XII intact, oriented X3, no focal deficits. Absent: pronater drift, facial droop, speech deficit - Skin Skin exam: Present: dry, intact Internal Medicine: Result - Labs CBC & Chem 7: 01/02/18 01:24 01/02/18 01:24 Labs: Short CBC 01/02/18 Range/Units 01:24 WBC 9.9 (4.3-11.1) K/mcL Hgb 12.0 (11.5-15.4) g/dL Hct 35.2 L (35.3-44.9) % Plt Count 309 (140-400) K/mcL Neutrophils # 7.6 (1.6-8.9) K/mcL BMP 01/01/18 01/02/18 22:29 01:24 Sodium 124 L 123 L Potassium 3.6 Chloride 97 L Carbon Dioxide 20 L BUN 10 Creatinine 0.56 L Glucose 155 H Calcium 8.7 Cardiac Enzymes 01/01/18 01/02/18 01/02/18 Range/Units 19:28 01:24 07:21 Troponin I 1.17 H* 0.93 H* 0.69 H* (< 0.04) ng/mL - Impressions Impressions Echocardiogram 01/01/18 19:19 Impressions: LVEF 55%. Normal LV chamber size, wall thickness and function. Atypical septal motion consistent with bundle branch block. Mild left ventricular diastolic dysfunction. Normal right ventricular structure and function. Mild tricuspid regurgitation. Mild pulmonary hypertension. Left Ventricular Wall Motion: Rest Echo Findings All wall segments showed normal motion. Findings: Study Quality * Technically adequate exam. ECG Findings * Sinus rhythm with BBB. Left Ventricle * LVEF 55%. * Normal LV chamber size, wall thickness and function. * Atypical septal motion consistent with bundle branch block. * Mild left ventricular diastolic dysfunction. Right Ventricle * Normal right ventricular structure and function. Left Atrium * Moderately dilated left atrium. Right Atrium * Mildly dilated right atrium. Aortic Valve * Trileaflet aortic valve. * Mildly sclerotic aortic valve leaflets. * No aortic regurgitation. * No aortic stenosis. Mitral Valve * Mildly thickened mitral valve leaflets. * No mitral regurgitation. * No mitral stenosis. Tricuspid Valve * Normal tricuspid valve structure. * Mild tricuspid regurgitation. * Mild pulmonary hypertension. Pulmonic Valve * Normal pulmonic valve structure and function. * Trace pulmonic regurgitation. Aorta * Normally sized aortic root. Pericardium * The pericardium appears normal. IVC * Normal IVC dimensions and inspiratory collapse. Pulmonary Artery * Normal visualized portions of the main pulmonary artery. Consult Discharge Plan - Plan Referrals: Emanuel Kulkarni MD [Primary Care Provider] - <Tim Lopez - Last Filed: 01/02/18 17:42> Date of Encounter: 01/02/18 - Assessment and plan (1) DVT prophylaxis Current Visit: No Status: Acute (2) C. difficile colitis Current Visit: Yes Status: Acute (3) Elevated troponin Current Visit: Yes Status: Acute (4) Hyponatremia Current Visit: Yes Status: Acute (5) History of COPD Current Visit: Yes Status: Acute - Time Spent With Patient Total time spent is greater than 50% in coordination of care (as documented) at patient's floor/unit and/or counseling patient: - Constitutional Vitals: Temp Pulse Resp BP Pulse Ox 97.7 F 104 18 135/77 93 01/02/18 15:55 01/02/18 15:55 01/02/18 15:55 01/02/18 15:55 01/02/18 15:55 Internal Medicine: Result - Labs CBC & Chem 7: 01/02/18 01:24 01/02/18 01:24 Labs: Short CBC 01/02/18 Range/Units 01:24 WBC 9.9 (4.3-11.1) K/mcL Hgb 12.0 (11.5-15.4) g/dL Hct 35.2 L (35.3-44.9) % Plt Count 309 (140-400) K/mcL Neutrophils # 7.6 (1.6-8.9) K/mcL BMP 01/01/18 01/02/18 22:29 01:24 Sodium 124 L 123 L Potassium 3.6 Chloride 97 L Carbon Dioxide 20 L BUN 10 Creatinine 0.56 L Glucose 155 H Calcium 8.7 Cardiac Enzymes 01/01/18 01/02/18 01/02/18 Range/Units 19:28 01:24 07:21 Troponin I 1.17 H* 0.93 H* 0.69 H* (< 0.04) ng/mL - Impressions Impressions Echocardiogram 01/01/18 19:19 Impressions: LVEF 55%. Normal LV chamber size, wall thickness and function. Atypical septal motion consistent with bundle branch block. Mild left ventricular diastolic dysfunction. Normal right ventricular structure and function. Mild tricuspid regurgitation. Mild pulmonary hypertension. Left Ventricular Wall Motion: Rest Echo Findings All wall segments showed normal motion. Findings: Study Quality * Technically adequate exam. ECG Findings * Sinus rhythm with BBB. Left Ventricle * LVEF 55%. * Normal LV chamber size, wall thickness and function. * Atypical septal motion consistent with bundle branch block. * Mild left ventricular diastolic dysfunction. Right Ventricle * Normal right ventricular structure and function. Left Atrium * Moderately dilated left atrium. Right Atrium * Mildly dilated right atrium. Aortic Valve * Trileaflet aortic valve. * Mildly sclerotic aortic valve leaflets. * No aortic regurgitation. * No aortic stenosis. Mitral Valve * Mildly thickened mitral valve leaflets. * No mitral regurgitation. * No mitral stenosis. Tricuspid Valve * Normal tricuspid valve structure. * Mild tricuspid regurgitation. * Mild pulmonary hypertension. Pulmonic Valve * Normal pulmonic valve structure and function. * Trace pulmonic regurgitation. Aorta * Normally sized aortic root. Pericardium * The pericardium appears normal. IVC * Normal IVC dimensions and inspiratory collapse. Pulmonary Artery * Normal visualized portions of the main pulmonary artery. - Attending Attestation I performed an independent interview and examine of this patient. I agree with the findings, assessment, and plan of Dr. Chan, internal medicine resident. Nephrology input appreciated. This is most likely hypovolemic hyponatremia due to excessive diarrheal losses. I did restart gentle IV fluids will continue to encourage good oral intake. Her diarrhea has improved. She continues on oral vancomycin for C. difficile colitis. Patient is presently nontoxic. One bowel movement as of the time I saw her. On toxic and has a normal white blood cell count. No abdominal discomfort. It appears her C. difficile is resolving as well. Gen NAD, AAOx3 Skin warm and dry Lungs CTAB Ht RRR Abd soft +BS, NT Ext no edema
[2018-01-02] MEDS ORDERED: Loratadine 10 MG TABLET PO SCH (18:00)
[2018-01-03] MEDS: *HR* Enoxaparin 40 MG/0.4 ML SYRINGE SQ SCH (05:39)
[2018-01-03] MEDS: Budesonide/Formoterol 80/4.5 MDI IH SCH (07:12)
[2018-01-03] MEDS: Sucralfate 1 GM TABLET PO SCH ×2 (08:20→10:22)
--- NOTE | 2018-01-03 08:26 | Internal Med Progress Note ---
Date of Encounter: 01/03/18 Time of Encounter: 08:24 - Assessment and plan (1) C. difficile colitis Current Visit: Yes Status: Acute Assessment and plan: On po vanc, 1 episode of diarrhea today q6 x 10 days (currently Day 7) (2) Hyponatremia Current Visit: Yes Status: Acute Assessment and plan: Nephrology following, appreciate the recommendations Urine osmolarity <280, urine sodium under 25, consistent with hyponatremia secondary to extrarenal losses (patient's cdiff diarrhea) PO sodium, cont po vanc, sodium/electrolyte monitoring (3) Elevated troponin Current Visit: Yes Status: Acute Assessment and plan: Downtrending trops trop max of 1.17 ecg ED shows sinus tachycardia in 120s (now low 100s); no st elevation or depression or t wave abnormalities No anginal symptoms/equivalents Will management medically at this time with asa, statin, bb Patient has denied invasive testing by cardiology (4) History of COPD Current Visit: Yes Status: Acute Assessment and plan: chronic, cont home meds, no acute exacerbation, saturating well on room air (5) DVT prophylaxis Current Visit: No Status: Acute Assessment and plan: lovenox sq - Time Spent With Patient Total time spent is greater than 50% in coordination of care (as documented) at patient's floor/unit and/or counseling patient: - Constitutional Vitals: Temp Pulse Resp BP Pulse Ox 97.7 F 93 16 142/87 96 01/03/18 08:07 01/03/18 08:07 01/03/18 08:07 01/03/18 08:07 01/03/18 08:07 General appearance: Present: A&O X 3, no acute distress Internal Medicine: Result - Labs CBC & Chem 7: 01/02/18 01:24 01/02/18 01:24 - Impressions Impressions Echocardiogram 01/01/18 19:19 Impressions: LVEF 55%. Normal LV chamber size, wall thickness and function. Atypical septal motion consistent with bundle branch block. Mild left ventricular diastolic dysfunction. Normal right ventricular structure and function. Mild tricuspid regurgitation. Mild pulmonary hypertension. Left Ventricular Wall Motion: Rest Echo Findings All wall segments showed normal motion. Findings: Study Quality * Technically adequate exam. ECG Findings * Sinus rhythm with BBB. Left Ventricle * LVEF 55%. * Normal LV chamber size, wall thickness and function. * Atypical septal motion consistent with bundle branch block. * Mild left ventricular diastolic dysfunction. Right Ventricle * Normal right ventricular structure and function. Left Atrium * Moderately dilated left atrium. Right Atrium * Mildly dilated right atrium. Aortic Valve * Trileaflet aortic valve. * Mildly sclerotic aortic valve leaflets. * No aortic regurgitation. * No aortic stenosis. Mitral Valve * Mildly thickened mitral valve leaflets. * No mitral regurgitation. * No mitral stenosis. Tricuspid Valve * Normal tricuspid valve structure. * Mild tricuspid regurgitation. * Mild pulmonary hypertension. Pulmonic Valve * Normal pulmonic valve structure and function. * Trace pulmonic regurgitation. Aorta * Normally sized aortic root. Pericardium * The pericardium appears normal. IVC * Normal IVC dimensions and inspiratory collapse. Pulmonary Artery * Normal visualized portions of the main pulmonary artery. Consult Discharge Plan - Plan Referrals: Emanuel Kulkarni MD [Primary Care Provider] -
[2018-01-03 10:07] LABS: BUN/Creatinine Ratio 26 (6-26); Blood Urea Nitrogen 14 mg/dL (8-23); Calcium 9.1 mg/dL (8.6-10.3); Carbon Dioxide 20 mEq/L (23-29); Chloride 107 mEq/L (98-107); Glucose 189 mg/dL (70-105); Osmolality,Calculated 284 (280-300); Potassium 3.8 mEq/L (3.5-5.1); Sodium 134 mEq/L (136-145); eGFR For African Americans > 60 (> 60); eGFR For Non-African Americans > 60 (> 60)
[2018-01-03] MEDS: Vancomycin Oral Soln 125 MG/2.5 ML UDC PO SCH (10:21)
[2018-01-03] MEDS: Cholecalciferol (D-3) 1,000 UNIT TABLET PO SCH (10:22)
[2018-01-03] MEDS: Ascorbic Acid 500 MG TABLET PO SCH (10:22)
[2018-01-03] MEDS: Aspirin Enteric Coated 81 MG Tablet PO SCH (10:22)
--- NOTE | 2018-01-03 11:47 | Discharge Summary ---
<Robson Jones - Last Filed: 01/03/18 12:51> - NOTES TO OUTPATIENT PROVIDER Notes to Outpatient Provider: The patient was admitted with severe dehydration and hypovolemic hyponatremia, sodium initially 118 on arrival. Continue to be treated with oral vancomycin for Clostridium difficile, received normal saline and serum sodium has increased to 134. The patient is no longer symptomatic and her loose bowel movements have slowed. Date of Encounter: 01/03/18 Time of Encounter: 09:50 - Discharge Diagnosis (1) C. difficile colitis Priority: Primary Status: Acute Assessment and Plan: On po vanc, 1 episode of diarrhea today q6 x 10 days (currently Day 7) (2) Hyponatremia Priority: Secondary Status: Acute Assessment and Plan: Nephrology following, recommends d/c NS. Urine osmolarity <280, urine sodium under 25, consistent with hyponatremia secondary to extrarenal losses (patient's cdiff diarrhea) Patient is corrected to normal level Recommend regular diet (3) Elevated troponin Priority: Secondary Status: Acute Assessment and Plan: Downtrending trops trop max of 1.17 No anginal symptoms/equivalents Will management medically at this time with asa, statin, bb Patient has denied invasive testing by cardiology (4) History of COPD Priority: Secondary Status: Acute Assessment and Plan: chronic, cont home meds, no acute exacerbation, saturating well on room air Hospital course: Ms. Page is a 77 year old female with history of recent C. difficile infection treated with Flagyl unsuccessfully who presented to the ED with abdominal pain, severe diarrhea, hyponatremia. Significant, the patient had been on oral vancomycin for 3 days prior to presentation. She is admitted for rehydration, and it was determined that she had hypovolemic hyponatremia which responded appropriately to fluids and regular food. The patient continued her oral vancomycin which did decrease the number of loose stools that she had per day. She will be discharged home with close follow-up with primary care. For more detailed information regarding hospital course please see individual assessment and plans. Discharge discussed with: patient, nurse, case management, [employer] consultant - Time Spent with Patient Total time spent providing and/or coordinating discharge services: Greater than 30 minutes - Discharge Medications Prescriptions: Atorvastatin [Lipitor] 40 mg PO HS #30 tablet Metoprolol [Lopressor] 12.5 mg PO BID #60 tablet Home Medications: Albuterol Sulfate [Proair Hfa] 2 puff IH Q4H PRN 08/28/15 [History] Fluticasone/Salmeterol [Advair 250-50 Diskus] 1 puff IH BID 08/28/15 [History] Loratadine [Claritin] 10 mg PO QPM 08/28/15 [History] Esomeprazole Magnesium [Nexium] 40 mg PO BID #60 04/10/16 [Rx] Sucralfate [Carafate] 1 gm PO QIDAC #120 tablet 04/10/16 [Rx] Ascorbate Calcium [Vitamin C] 500 mg PO DAILY 01/01/18 [History] Aspirin Enteric Coated [Aspirin EC] 81 mg PO DAILY 01/01/18 [History] Cholecalciferol (D-3) [Vitamin D] 1,000 unit PO DAILY 01/01/18 [History] Vancomycin HCl 250 mg PO Q6H 01/01/18 [History] Atorvastatin [Lipitor] 40 mg PO HS #30 tablet 01/03/18 [Rx] Metoprolol [Lopressor] 12.5 mg PO BID #60 tablet 01/03/18 [Rx] Allergies/Adverse Reactions: 3 Allergy/AdvReac Type Severity Reaction Status Date / Time morphine AdvReac Vomiting Verified 08/28/15 19:55 Oxycodone [From Percocet] AdvReac Vomiting Verified 01/01/18 14:46 propoxyphene AdvReac Vomiting Verified 01/01/18 14:46 [From Darvocet-N] tramadol AdvReac Headache Verified 01/01/18 14:46 tape Allergy Hives Uncoded 01/01/18 14:46 Date of admission: 01/01/18 19:08 Primary care physician: Emanuel Kulkarni MD Consults: 01/01/18 19:19 Consult to Cardiology [CONS] Routine Comment: Consulting Provider: Cardiology Veronique Reason for Consult: positive troponin Call Completed: Yes 01/01/18 19:38 Consult to Cardiology [CONS] Routine Comment: Consulting Provider: Cardiology Veronique Reason for Consult: Positive troponin Call Completed: Yes 01/01/18 19:56 Consult to Nephrology [CONS] Routine Consulting Provider: Kidney Veronique/DARIO/ANDREW/ZI Reason for Consult: Hyponatremia Call Completed: Yes Discharging clinician: Robson Zamostny Anticipated date of discharge: 01/03/18 - Constitutional Vitals: Temp Pulse Resp BP Pulse Ox 97.7 F 93 16 142/87 96 01/03/18 08:07 01/03/18 08:07 01/03/18 08:07 01/03/18 08:07 01/03/18 08:07 General appearance: Present: A&O X 3, no acute distress Exam: Gen: Vitals noted. No acute distress. HEENT: Normocephalic, atraumatic Cardiac: RRR, no murmur, +S1/S2 Pulmonary: CTA bilaterally, no wheezes, rales or rhonchi, equal chest expansion Abdomen: soft, nontender, no guarding Back: Nontender throughout. Extremities: no BLE edema, nontender calf, no cyanosis or clubbing Neuro: moves all extremities, no focal deficits. A&Ox3 Psych: Appropriate mood and behavior - Patient Status Disposition: Home Health Service Condition: Good Functional capacity at discharge: uses cane/walker Overall status at discharge: patient is not back to baseline - Discharge Instructions Instructions: Metoprolol (By mouth), Atorvastatin (By mouth), Clostridium Difficile Infection (DC) Follow Up With: Emanuel Kulkarni MD [Primary Care Provider] - 01/06/18 3:00 pm Additional Instructions: Follow-up with primary care in 3-5 days Continue to eat a regular diet, drink fluids, primarily electrolyte replacing fluids such as Gatorade Continue oral vancomycin for 3 more days Return to the ED for recurrent symptoms, or chest pain, shortness of breath, numbness or tingling in hands or feet, weakness, changes in mental status - Diet and Activity Activity: increase activity as tolerated Diet: regular diet <Tim Lopez - Last Filed: 01/03/18 14:54> Date of Encounter: 01/03/18 - Discharge Diagnosis (1) C. difficile colitis Status: Acute (2) Elevated troponin Status: Acute (3) Hyponatremia Status: Acute (4) History of COPD Status: Acute Hospital course: Ms. Page is a 77 year old female - Time Spent with Patient Total time spent providing and/or coordinating discharge services: Date of admission: 01/01/18 19:08 Primary care physician: Emanuel Kulkarni MD Consults: 01/01/18 19:19 Consult to Cardiology [CONS] Routine Comment: Consulting Provider: Cardiology Mcdade Reason for Consult: positive troponin Call Completed: Yes 01/01/18 19:38 Consult to Cardiology [CONS] Routine Comment: Consulting Provider: Cardiology Veronique Reason for Consult: Positive troponin Call Completed: Yes 01/01/18 19:56 Consult to Nephrology [CONS] Routine Consulting Provider: Kidney Veronique/ORIAMANDA/ANDREW/BROWN Reason for Consult: Hyponatremia Call Completed: Yes - Constitutional Vitals: Temp Pulse Resp BP Pulse Ox 97.8 F 86 16 137/82 95 01/03/18 11:48 01/03/18 11:48 01/03/18 11:48 01/03/18 11:48 01/03/18 11:48 - Attending Attestation I performed an independent interview and exam of this patient I agree with findings, assessment, and plan of , internal medicine resident. Nephrology input is appreciated. I discussed the case with nephrology as well. Patient with hypovolemic hyponatremia due to diarrhea. This is resolved. Her diarrhea is improving. She will continue on oral vancomycin for C. difficile colitis as previously prescribed. We did recommend increased oral intake. Otherwise she is doing well and deemed stable for discharge. Gen: NAD AAOx3 Skin warm and dry Neck supple Lung CTAB Abd soft +BS, NT Ext no edema
[2018-01-03 11:50] VITALS: BP 137/82
--- NOTE | 2018-01-03 11:57 | Nephrology Progress Note ---
Date of Encounter: 01/03/18 Time of Encounter: 09:45 - Assessment and Plan (1) Hyponatremia Current Visit: Yes Status: Acute 11 meq increase over 24 hours; now 134 meq Plan: No evidence of dysarthria, dysphagia, headache, obtundation, she is stable for discharge, recommend follow-up with her PCP in ideally 2-3 days to observe neurologic status Patient on PO hydration, importance of balanced meal for electrolyte maintenance discussed, discussed watching for clinical signs of hypovolemia including postural lightheadedness, increased tenting of the skin from baseline Continuing to treat Cdiff diarrhea with PO vanc day 01/11, patient's freqent BMs are improving gradually, abx outpatient per primary team (2) C. difficile colitis Current Visit: Yes Status: Acute Day for PO vanc, patient responding to treatment, continue abx outpatient per primary team (3) Elevated troponin Current Visit: Yes Status: Acute Conservative management with asa, statin, bb per Cardiology (4) History of COPD Current Visit: Yes Status: Acute Not in acute exacerbation, home meds (5) DVT prophylaxis Current Visit: No Status: Acute lovenox sq Subjective Interval history: Admitted for hyponatremia, cdiff diarrhea on po vanc, approximately 50% reduction in diarrhea episodes per patient subjective report, she had 4 episodes of diarrhea 01/02. Denies dysarthria, dysphagia, headache; trouble concentrating. Objective - Vital Signs Vital signs: Vital Signs Temp Pulse Resp BP Pulse Ox 01/03/18 08:07 97.7 F 93 16 142/87 96 01/03/18 03:00 97.5 F L 84 17 128/80 94 01/02/18 22:26 94 01/02/18 19:14 98.3 F 103 18 103/62 94 01/02/18 15:55 97.7 F 104 18 135/77 93 Intake and Output 01/02/18 01/03/18 01/03/18 23:59 07:59 15:59 Intake Total 440 / 440 0 / 0 240 / 240 Output Total 200 / 200 650 / 650 750 / 750 Balance 240 / 240 -650 / -650 -510 / -510 Intake: Oral 440 / 440 0 / 0 240 / 240 Output: Urine 0 / 0 650 / 650 750 / 750 Catheter 200 / 200 Other: Meal Dinner Breakfast Percent of Meal Consumed 100% 100% Stool Size Small Moderate Stool Consistency loose soft Stool Color Brown Brown # Bowel Movements 1 1 Weight 84.3 kg Blood Glucose* 113 110 Patient Weight 01/03/18 23:59 Weight 84.3 kg - General Appearance General appearance: Present: well-developed, well-nourished, appears started age Neck: Present: no JVD, no thyromegaly, no carotid bruit, supple Respiratory: Present: no kyphosis, no scoliosis Cardiology: Present: no murmurs, no rub, no gallops, no edema, regular rate, regular rhythm, normal S1, normal S2 Gastrointestinal: Present: normoactive bowel sounds, no tenderness Integumentary: Present: no rash, warm and dry Neurologic: Present: no focal deficit, no asterixis, alert and oriented x3, reflexes 2+ and symmetric, gait normal, strength 5/5 Musculoskeletal: Present: no deformities, no erythema, no cyanosis, no clubbing Psychiatric: Present: mood/affect appropriate, cooperative - Lab 01/02/18 01:24 01/03/18 09:03 Most recent lab results Calcium 9.1 mg/dL (8.6-10.3) 01/03/18 09:03 Phosphorus 3.1 mg/dL (2.7-4.5) 01/02/18 01:24 Magnesium 1.9 mg/dL (1.6-2.6) 01/02/18 01:24 Urine Sodium 23.3 mEq/L 01/01/18 21:15 Consult Discharge Plan - Plan Referrals: Emanuel Kulkarni MD [Primary Care Provider] -
--- NOTE | 2018-01-03 18:04 | Electrocardiograph Report ---
[place] [address] Test Date: 2018-01-01 Pat Name: Farida Page Department: 104 Room: 2NE33 Gender: F Ironer Hand: TY : 1940 Requested By: Summer Hagen Order Number: [id number] Reading MD: Alfonzo Mallory Measurements Intervals [place] Rate: 129 P: 0 OR: 137 QRS: -54 QRSD: 141 T: 64 QT: 347 QTc: 423 Interpretive Statements SINUS TACHYCARDIA WITH OCCASIONAL VENTRICULAR PREMATURE COMPLEXES WITH OCCASIONAL SUPRAVENTRICULAR PREMATURE COMPLEXES RIGHT BUNDLE BRANCH BLOCK LEFT ANTERIOR FASCICULAR BLOCK MODERATE VOLTAGE CRITERIA FOR LVH, CONSIDER NORMAL VARIANT Electronically Signed On 01-03-2018 18:02:43 EDT by Alfonzo Mallory
--- NOTE | 2018-01-03 18:05 | Electrocardiograph Report ---
[address] [address] Test Date: 2018-01-01 Pat Name: Farida Page Department: 104 Room: 2NE33 Gender: F Gold Buyer: TY : 1940 Requested By: Nahum Hernandez Order Number: [id number] Reading MD: Alfonzo Mallory Measurements Intervals [place] Rate: 122 P: TN: 0 QRS: -44 QRSD: 145 T: 74 QT: 345 QTc: 417 Interpretive Statements ATRIAL FIBRILLATION WITH RAPID VENTRICULAR RESPONSE MARKED LEFT AXIS DEVIATION RIGHT BUNDLE BRANCH BLOCK MODERATE VOLTAGE CRITERIA FOR LVH, CONSIDER NORMAL VARIANT Electronically Signed On 01-03-2018 18:03:45 EDT by Alfonzo Mallory
--- NOTE | 2018-01-03 18:11 | Electrocardiograph Report ---
[place] [address] Test Date: 2018-01-01 Pat Name: Farida Page Department: 111 Room: 2NE33 Gender: F Qa Lead: RADHA : 1940 Requested By: Anna Wen Order Number: [id number] Reading MD: Alfonzo Mallory Measurements Intervals [place] Rate: 104 P: 12 AL: 171 QRS: -11 QRSD: 142 T: -9 QT: 400 QTc: 460 Interpretive Statements SINUS TACHYCARDIA RIGHT BUNDLE BRANCH BLOCK Electronically Signed On 01-03-2018 18:09:51 EDT by Alfonzo Mallory
== END 2018-01-03 15:31 | disposition home health service (06) | DRG 372 ==
LOC: EMEROO 13:53 → 2NENU 13:53
PROVIDERS: ADMIT Internal Medicine; ATTEND Internal Medicine